=== PATIENT | female | born 1965 | race African-American/Black ===

== ENCOUNTER 2017-09-27 02:14 | Emergency (ER) | payer OTHER ==
[~2017-09-27] VITALS: Ht 172.7 cm; Wt 77.0 kg
[~2017-09-27 02:14] MED LIST: AMLO10TA4; ATENOLOL; HCTZ; LISINOPRIL; POTASSIUM
[2017-09-27] MEDS ORDERED: NITROGLYCERIN OINT 1GM/INCH UDPKT TD STA (02:26)
[2017-09-27 02:55] LABS: EOSINOPHILS % 3.1 % (0.0-5.0); HEMATOCRIT. 38.6 % (36.0-48.0); HEMOGLOBIN. 12.9 g/dL (12.0-16.0); LYMPHOCYTES % 22.3 % (20.0-50.0); MEAN CORPUSCULAR HEMOGLOBIN 25.1 pg (28.0-32.0); MEAN CORPUSCULAR VOLUME 75.2 fL (81.0-99.0); MEAN PLATELET VOLUME 7.6 fl (7.4-10.4); MONOCYTES % 6.2 % (2.0-8.0); NEUTROPHILS % 67.4 % (40.0-76.0); PLATELET 216 x1000/uL (130-400); RED BLOOD CELL COUNT 5.13 mill/uL (4.2-5.4); RED CELL DISTRIBUTION WIDTH 13.6 % (11.6-14.6)
[2017-09-27] MEDS ORDERED: KETOROLAC 30MG/ML VIAL IV ONE (03:00)
[2017-09-27] MEDS ORDERED: FAMOTIDINE 20MG/2ML VIAL IV ONE (03:00)
[2017-09-27 03:10] LABS: CARBON DIOXIDE 32 mEq/L (21-32); TROPONIN I < 0.02 ng/mL (0.00-0.04)
[2017-09-27] MEDS ORDERED: ONDANSETRON HCL 4MG/2ML VIAL IV ONE (03:15)
[2017-09-27] MEDS ORDERED: VISCOUS LIDOCAINE 2% 15 ML UDC PO STA (04:37)
[2017-09-27] MEDS ORDERED: MAGNESIUM/ALUMINUM HYDROXIDE/SIMETHICONE 30ML UDC PO STA (04:37)
[2017-09-27 05:04] LABS: CHLORIDE 102 mEq/L (98-107)
[2017-09-27] MEDS ORDERED: NA PHOS,M-B/NA PHOS,DI-BA ENEMA 118ML PR PRN (09:00)
[2017-09-27] MEDS ORDERED: FAMOTIDINE 20MG/2ML VIAL IV SCH (09:00)
[2017-09-27] MEDS ORDERED: ASPIRIN 325MG EC TABLET PO SCH (09:00)
[2017-09-27] MEDS ORDERED: NITROGLYCERIN 0.4MG TABLET SL SL PRN (09:00)
[2017-09-27] MEDS ORDERED: IPRATROPIUM/ALBUTEROL 0.5-3(2.5)MG/3ML NEB INH PRN (09:00)
[2017-09-27] MEDS ORDERED: LORAZEPAM 2MG/ML CPJ IV PRN (09:00)
[2017-09-27] MEDS ORDERED: MAGNESIUM/ALUMINUM HYDROXIDE/SIMETHICONE 30ML UDC PO PRN (09:00)
[2017-09-27] MEDS ORDERED: BLOOD SUGAR DIAGNOSTIC STRIP TEST SCH (09:00)
[2017-09-27] MEDS ORDERED: ACETAMINOPHEN 325MG TABLET PO PRN (09:00)
[2017-09-27] MEDS ORDERED: ZOLPIDEM TARTRATE 5MG TABLET PO PRN (09:00)
[2017-09-27] MEDS ORDERED: METOPROLOL TARTRATE 25MG TABLET PO SCH (09:00)
[2017-09-27] MEDS ORDERED: CLONIDINE 0.1MG TABLET PO PRN (09:00)
[2017-09-27] MEDS ORDERED: ONDANSETRON HCL 4MG/2ML VIAL IV PRN (09:00)
[2017-09-27] MEDS ORDERED: DEXTROSE 50% WATER 50ML SYRINGE IV PRN (09:00)
[2017-09-27] MEDS ORDERED: DIPHENHYDRAMINE 50MG/ML VIAL IV PRN (09:00)
[2017-09-27] MEDS ORDERED: ENOXAPARIN 40MG/0.4ML SYR SUBCUT SCH (09:00)
[2017-09-27] MEDS ORDERED: GUAIFENESIN 200MG/10ML SUGAR FREE UDC PO PRN (09:00)
[2017-09-27] MEDS ORDERED: DOCUSATE SODIUM 100MG CAPSULE PO PRN (09:00)
[2017-09-27] MEDS ORDERED: KETOROLAC 15MG/ML VIAL IV PRN (09:00)
[2017-09-27] MEDS ORDERED: LISINOPRIL 20MG TABLET PO SCH (09:00)
[2017-09-27 09:16] VITALS: BP 132/61
[2017-09-27 10:00] LABS: ETHANOL BLOOD < 10 mg/dL; HDL CHOLESTEROL 55 mg/dL (40-59); LDL CHOLESTEROL 113 mg/dL (5-100)
[2017-09-27] MEDS ORDERED: INSULIN LISPRO 100 UNITS/ML SUBCUT SCH (13:20)
== END 2017-09-27 09:20 | disposition left against medical advice (07) ==
LOC: ER 02:14 → EDBEDREQTM 06:32 → EDBEDREQ 06:32 → ENRESERV 07:02 → CANRESERV 07:02 → ENRESERV 07:21 → ER 09:20 → CANBEDREQ 14:41
DX: R07.9 Chest pain, unspecified (principal); I10 Essential (primary) hypertension; E11.9 Type 2 diabetes mellitus without complications
CPT/HCPCS: 36415; 71010; 80053; 80061; 83036; 83880; 84484; 85025; 85379; 93005; 96374; 96375; 99285; G0482; J1885; J2405; J3490; Z7610